=== PATIENT | male | born 1990 | race Caucasian/White ===

== ENCOUNTER 2020-01-01 10:32 | Emergency (ER) | payer MEDICAID, SELFPAY ==
[~2020-01-01] VITALS: Ht 190.5 cm; Wt 127.0 kg
[2020-01-01 10:44] VITALS: Ht 190.5 cm; Wt 127.0 kg
[2020-01-01 11:50] VITALS: BP 111/76
== END 2020-01-01 11:50 | disposition home or self-care (01) ==
LOC: ED 10:32
DX: R05 Cough (principal); R50.9 Fever, unspecified; I10 Essential (primary) hypertension; Z20.828 Contact with and (suspected) exposure to other viral communicable diseases; Z90.49 Acquired absence of other specified parts of digestive tract
CPT/HCPCS: U0003-CS